=== PATIENT | male | born 1960 | race Hispanic/Latino ===

== ENCOUNTER 2018-01-31 13:29 | Emergency (ER) | payer BC ==
[2018-01-31 13:36] VITALS: RESP 18; BMI 28.3
[2018-01-31 14:00] LABS: BASO # 0.03 K/mm3 (0.0-2.0); BASO % 0.4 % (0.0-3.0); EOS # 0.1 (0.0-0.7); EOS % 1.3 % (1.5-5.0); GRAN # 4.96 (1.4-6.5); GRAN % 74.2 % (50.0-68.0); HEMOGLOBIN 14.9 g/dL (14.0-18.0); LYMPH # 1.4 (1.2-3.4); LYMPH % 20.1 % (22.0-35.0); MEAN CELL VOLUME 83.9 fl (80.0-105.0); MEAN CORPUSCULAR HEMOGLOBIN 28.5 pg (25.0-35.0); MONO # 0.3 (0.1-0.6); RBC 5.22 10^6/uL (3.5-6.1); RED CELL DISTRIBUTION WIDTH 12.8 % (11.5-14.5); WHITE BLOOD COUNT 6.7 10^3/uL (4.5-11.0)
[2018-01-31 14:06] LABS: INR 0.93; PARTIAL THROMBOPLASTIN TIME 27.1 Seconds (25.1-36.5); PROTHROMBIN TIME 10.7 SECONDS (9.4-12.5)
[2018-01-31 14:09] LABS: ALB/GLOB RATIO 1.6 (1.1-1.8); ALBUMIN 4.5 g/dL (3.0-4.8); ALT/SGPT 54 U/L (7-56); AST/SGOT 31 U/L (17-59); BLOOD UREA NITROGEN 23 mg/dL (7-21); CALCIUM 9.3 mg/dL (8.4-10.5); GFR NON-AFRICAN AMERICAN > 60
[2018-01-31] MEDS ORDERED: Sodium Chloride 0.9% 500 ML IV STA (14:12)
[2018-01-31 14:20] LABS: TROPONIN I < 0.01 ng/mL
[2018-01-31 14:31] VITALS: TEMP 98.3
--- NOTE | 2018-01-31 15:12 | ED PDOC ---
Arrival/HPI - General Chief Complaint: Chest Pain Time Seen by Provider: 01/31/18 13:35 Historian: Patient - History of Present Illness Narrative History of Present Illness (Text): 01/31/18 15:09 Patient is a 57 yo male, family hx of aortic rupture, past medical history of hypertension, presents to the Emergency Department with history of "chest fullness" since yesterday as well as history of intermittent neck pain that radiates to his upper back and at times numbness to his right pinky finger. He denies exertional chest pain . Denies pain with deep breaths. Denies weakness. Denies headache. Denies visual symptoms. Denies lower back pain. Denies numbness or weakness to legs. He states at times neck pain is reproduced with specific movements of his neck. Denies trauma. Denies fever. Denies sore throat or difficulty swallowing. Denies leg pain or swelling. Past Medical History - Cardiac Hx Cardiac Disorders: Yes Hx Hypertension: Yes - Pulmonary Hx Respiratory Disorders: No - Neurological Hx Neurological Disorder: No - HEENT Hx HEENT Disorder: No - Renal Hx Renal Disorder: No - Endocrine/Metabolic Hx Endocrine Disorders: No - Hematological/Oncological Hx Blood Disorders: No - Integumentary Hx Dermatological Disorder: No - Musculoskeletal/Rheumatological Hx Musculoskeletal Disorders: No - Gastrointestinal Hx Gastrointestinal Disorders: No - Genitourinary/Gynecological Hx Genitourinary Disorders: No - Psychiatric Hx Psychophysiologic Disorder: No Hx Substance Use: No - Surgical History Hx Appendectomy: Yes Family/Social History Family/Social History: Other (aortic disease) Smoking Status: Never Smoked Hx Alcohol Use: Yes Frequency of alcohol use: Socially Hx Substance Use: No Allergies/Home Meds Allergies/Adverse Reactions: Allergies No Known Allergies Allergy (Verified 01/31/18 13:33) Home Medications: Home Meds Medication Instructions Recorded Confirmed Losartan [Cozaar] 25 mg PO DAILY 01/31/18 01/31/18 Review of Systems - Review of Systems Constitutional: absent: Fevers Eyes: absent: Vision Changes ENT: absent: Sore Throat, Rhinorrhea Respiratory: absent: SOB, Cough Cardiovascular: Chest Pain. absent: Palpitations, Edema, Calf Pain, GRIMES, Syncope Gastrointestinal: absent: Abdominal Pain, Nausea Genitourinary Male: absent: Dysuria Musculoskeletal: Back Pain, Neck Pain Skin: absent: Rash Neurological: absent: Headache, Dizziness, Focal Weakness, Gait Changes, Disequilibrium Endocrine: absent: Polyuria Hemo/Lymphatic: absent: Easy Bleeding Physical Exam - Physical Exam Narrative Physical Exam (Text): Head: Atraumatic. Normocephalic. Eyes: PERRL. EOMI. Conjunctivae are not pale. ENT: Mucous membranes are moist. No facial swelling. Neck: Supple. Full ROM. No meningeal signs. Cardiovascular: Regular rate. Regular rhythm. Systolic murmur noted. Distal pulses intact. Pulmonary/Chest: No evidence of respiratory distress. Clear to auscultation bilaterally. No wheezing, rales or rhonchi. Abdominal: Nondistended Extremities: No edema. No cyanosis. No clubbing. Full range of motion in all extremities. Skin: Skin is warm and dry. Neurological: Alert, awake. Motor and sensory exam intact. Vital Signs Reviewed: Yes Vital Signs Temp Pulse Pulse Resp BP BP Pulse Ox 01/31/18 14:37 136/86 01/31/18 14:30 98.3 F 72 18 144/89 96 01/31/18 13:45 76 150/87 01/31/18 13:36 76 18 150/87 98 Temperature: Afebrile Blood Pressure: Hypertensive Pulse: Regular Appearance: Positive for: Non-Toxic, Comfortable Pain Distress: Mild Mental Status: Positive for: Alert and Oriented X 3 Medical Decision Making ED Course and Treatment: 01/31/18 16:03 Impression: 57 year old male presents to the Emergency department complaining of neck, back, chest discomfort.. Plan: -- EKG -- Chest X-ray -- CT Angiography -- Sodium Chloride -- Reassess and disposition Progress Notes: There is family hx of aortic rupture. On exam however, neck pain is reproducible with movements and patient is neurologically intact. Review of recent MRI had revealed possible ascending aortic dilitation. CT dissection protocol ordered. CT Angiography reviewed, shows: Impression: No evidence of aortic dissection. No acute intrathoracic or intra-abdominal abnormalities. On re-exam, BP improved. He has no exertional chest pain or shortness of breath. No pleuritic pain or calf pain, Will discharge, have recommended follow-up with property maintenance technician on outpatient basis as at this time neck pain appears reproducible with movements and no exertional chest discomfort noted. Initial EKG and cardiac enzymes unremarkable. 01/31/18 23:03 - Lab Interpretations Lab Results: 01/31/18 13:41 01/31/18 13:41 Lab Results 01/31/18 13:41: Sodium 136, Potassium 4.3, Chloride 102, Carbon Dioxide 26, Anion Gap 12, BUN 23 H, Creatinine 0.7 L, Est GFR ( Amer) > 60, Est GFR (Non-Af Amer) > 60, Random Glucose 95, Calcium 9.3, Total Bilirubin 0.5, AST 31, ALT 54, Alkaline Phosphatase 51, Lactate Dehydrogenase 516, Total Creatine Kinase 140, Troponin I < 0.01, Total Protein 7.3, Albumin 4.5, Globulin 2.8, Albumin/Globulin Ratio 1.6 01/31/18 13:41: PT 10.7, INR 0.93, APTT 27.1 01/31/18 13:41: WBC 6.7, RBC 5.22, Hgb 14.9, Hct 43.8, MCV 83.9, MCH 28.5, MCHC 34.0, RDW 12.8, Plt Count 137, MPV 10.0, Gran % 74.2 H, Lymph % (Auto) 20.1 L, [place] % (Auto) 4.0, Eos % (Auto) 1.3 L, Baso % (Auto) 0.4, Gran # 4.96, Lymph # (Auto) 1.4, [place] # (Auto) 0.3, Eos # (Auto) 0.1, Baso # (Auto) 0.03 - RAD Interpretation Radiology Orders: 01/31/18 13:37 ANGIOGRAPHY DISECTION PROTOCOL [CT] Stat - Medication Orders Current Medication Orders: Discontinued Medications Sodium Chloride (Sodium Chloride 0.9%) 500 mls @ 1,000 mls/hr IV .Q30M STA Stop: 01/31/18 14:41 Last Admin: 01/31/18 14:41 Dose: 1,000 mls/hr eMAR Start Stop Document 01/31/18 14:41 MR (Rec: 01/31/18 14:42 MR [id number] Intravenous Solution Start Date 01/31/18 Start Time 14:41 End Date 01/31/18 End time 15:11 Total Infusion Time 30 Disposition/Present on Arrival - Present on Arrival Any Indicators Present on Arrival: No History of DVT/PE: No History of Uncontrolled Diabetes: No Urinary Catheter: No History of Decub. Ulcer: No History Surgical Site Infection Following: None - Disposition Have Diagnosis and Disposition been Completed?: Yes Diagnosis: Neck pain, Chest pain Disposition: HOME/ ROUTINE Disposition Time: 16:20 Patient Plan: Discharge Condition: GOOD Discharge Instructions (ExitCare): Chest Pain, Neck Pain, Chest Pain (ED) Additional Instructions: Follow-up with your property maintenance technician as directed. For any shortness of breath, swelling, fevers, weakness, pain with exertion, persistent or worsening of symptoms, get rechecked. Forms: [employer] [place] (Swedish)
--- NOTE | 2018-01-31 16:01 | CT ---
PROCEDURE: CT Angiography Chest, Abdomen and Pelvis with and without intravenous contrast HISTORY: chest pain, neck pain, family hx of aortic dissect COMPARISON: None. TECHNIQUE: Contiguous axial images of the chest, abdomen and pelvis were obtained in the phase of aortic enhancement. A noncontrast enhanced CT of the chest was also obtained to evaluate for possible intramural thrombus. Coronal and sagittal reformats were generated. Radiation dose: Total exam DLP = 1007.22 mGy-cm. This CT exam was performed using one or more of the following dose reduction techniques: Automated exposure control, adjustment of the mA and/or kV according to patient size, and/or use of iterative reconstruction technique. Intravenous contrast dose: 150 cc of Omni 350 FINDINGS: CT ANGIOGRAPHY OF THE CHEST WITH & WITHOUT CONTRAST: AORTA (CHEST AND ABDOMEN): The ascending aorta measures 3.9 cm in diameter at the level of the pulmonary artery trunk. The descending aorta at this level measures 2.4 cm. Mild coronary artery calcification can be seen. The celiac axis, superior mesenteric artery, inferior mesenteric artery and the renal arteries are widely patent. The pelvic arteries are unremarkable. LUNGS: Clear. No nodule, mass or consolidation. MEDIASTINUM: Unremarkable. . No aortic dissection. Normal size heart. LYMPH NODES: Unremarkable. PLEURA: Unremarkable. No pneumothorax. No pleural fluid. No pericardial effusion BONES: Unremarkable. OTHER FINDINGS: None. CT ANGIOGRAPHY OF THE ABDOMEN AND PELVIS WITH CONTRAST: LIVER: Unremarkable. No gross lesion or ductal dilatation. GALLBLADDER AND BILE DUCTS: Unremarkable. PANCREAS: Unremarkable. No gross lesion or ductal dilatation. SPLEEN: Unremarkable. ADRENALS: Unremarkable. No mass. KIDNEYS AND URETERS: Unremarkable. No hydronephrosis. No solid mass. VASCULATURE: Unremarkable. No aortic aneurysm. Mild aortic calcifications are seen just above the bifurcation. STOMACH AND BOWEL: Unremarkable. No obstruction. No gross mural thickening. APPENDIX: Normal appendix. PERITONEUM: Unremarkable. No free fluid. No free air. LYMPH NODES: Unremarkable. No enlarged lymph nodes. BLADDER: Unremarkable. REPRODUCTIVE: Unremarkable. BONES: No acute fracture. OTHER FINDINGS: Findings were discussed with Dr. Webb at 3:50 p.m. IMPRESSION: No evidence of aortic dissection. No acute intrathoracic or intra-abdominal abnormalities.
--- NOTE | 2018-01-31 16:06 | RAD ---
Date of service: 01/31/2018 HISTORY: chest discomfort COMPARISON: No prior. TECHNIQUE: Chest PA and lateral FINDINGS: LUNGS: No active pulmonary disease. PLEURA: No significant pleural effusion identified. No pneumothorax apparent. CARDIOVASCULAR: No aortic atherosclerotic calcification present. Normal cardiac size. No pulmonary vascular congestion. OSSEOUS STRUCTURES: No significant abnormalities. VISUALIZED UPPER ABDOMEN: Normal. OTHER FINDINGS: None. IMPRESSION: No active disease.
--- NOTE | 2018-01-31 16:08 | CARD ---
APPROVED REPORT Date of service: 01/31/2018 EKG Measurement Heart [id number] ID [id number] <Conclusion> Normal sinus rhythm Normal Electrocardiogram
[2018-01-31 16:28] VITALS: BP 144/92; PULSE 62; O2SAT 98
== END 2018-01-31 16:05 | disposition home or self-care (01) ==
LOC: ED 13:29
DX: M54.2 Cervicalgia (principal); R07.9 Chest pain, unspecified; I10 Essential (primary) hypertension
CPT/HCPCS: 71046; 71275; 74175; 80053; 82550; 83615; 84484; 85025; 85610; 85730; 93005; 99283; J7040; Q9967